=== PATIENT | female | born 1965 | race Two or more races ===

== ENCOUNTER 2023-07-24 19:58 | Emergency (ER) | payer MEDICARE, MEDICAID ==
[~2023-07-24] VITALS: Ht 162.6 cm; Wt 90.9 kg
[~2023-07-24 19:58] MED LIST: ARIP30TA7 PO; CHLO25AM IM; DIVA-76 PO; LORA2VIA30 IM; RISP1TAB13 PO; TRIH2TAB3 PO
[2023-07-24 21:11] LABS: BASOPHILS % (AUTO) 0.5 % (0-1); EOSINOPHILS # (AUTO) 0.2 X10'3 (0-0.9); EOSINOPHILS % (AUTO) 1.7 % (0-6); HEMATOCRIT 36.1 % (35.0-45.0); HEMOGLOBIN 11.8 g/dl (12.0-16.0); LYMPHOCYTES # (AUTO) 2.8 X10'3 (1.1-4.8); LYMPHOCYTES % (AUTO) 28.8 % (21-51); MEAN CORPUSCULAR HEMOGLOBIN 27.9 PG (27.0-31.0); MEAN CORPUSCULAR HGB CONC 32.7 g/dL (33.0-36.5); MEAN CORPUSCULAR VOLUME 85.3 FL (78-98); MEAN PLATELET VOLUME 8.6 FL (7.4-10.4); MONOCYTES # (AUTO) 0.7 X10'3 (0-0.9); MONOCYTES % (AUTO) 7.4 % (2-12); NEUTROPHILS % (AUTO) 61.6 % (42-75); PLATELET COUNT 294 X10'3 (140-440); RED BLOOD COUNT 4.23 X10'6 (4.20-5.60); WHITE BLOOD COUNT 9.8 X10'3 (4.5-11.0)
[2023-07-24] MEDS: LORazepam 2 mg/ml vial IM ONE (21:26)
[2023-07-24] MEDS: ziprasidone IM 20mg inj **IM only IM ONE (21:26)
[2023-07-24] MEDS: diazepam inj 5 MG/ML inj. IV ONE (21:27)
[2023-07-24 21:41] LABS: ALBUMIN 3.3 G/DL (3.4-5.0); ANION GAP 8 (8-16); BLOOD UREA NITROGEN 21 MG/DL (7-18); BUN/CREATININE RATIO 33.9 (10.0-20.0); CALCIUM 8.6 MG/DL (8.5-10.1); CHLORIDE 105 MMOL/L (99-107); CREATININE 0.62 MG/DL (0.40-0.90); GLUCOSE 102 MG/DL (70-104); POTASSIUM 3.5 MMOL/L (3.5-5.1); SODIUM 140 MMOL/L (135-145); THYROID STIMULATING HORMONE 2.51 ulU/ml (0.34-4.50); eCRCL 87 ML/MIN; eGFR > 90 ML/MIN
[2023-07-24 21:44] LABS: ETHANOL < 10 MG/DL (<10)
[2023-07-24 23:48] LABS: URINE HCG NEGATIVE (NEG)
[2023-07-25] LABS: BILIRUBIN,URINE NEGATIVE (Neg); CLARITY,URINE CLOUDY (Clear); COLOR,URINE YELLOW (Yellow); GLUCOSE, URINE NEGATIVE (Neg); KETONES,URINE NEGATIVE (Neg); LEUKOCYTE ESTERASE ,URINE MODERATE (Neg); NITRITES, URINE POSITIVE (Neg); OCCULT BLOOD,URINE TRACE-INTACT (Neg); PH,URINE 5.5 (4.8-8.0); PROTEIN,URINE NEGATIVE (Neg); UROBILINOGEN,URINE 0.2 E.U/dL (0.2-1.0)
[2023-07-25 00:22] LABS: UA COLLECTION TYPE STRAIGHT CATH
[2023-07-25 00:24] LABS: SQUAMOUS EPITHELIAL CELL,UR MANY /LPF (FEW)
[2023-07-25 00:25] LABS: WBC,URINE 50-100 /HPF (0-4)
[2023-07-25 00:26] LABS: BACTERIA,URINE 4+ /HPF (Neg); RBC,URINE 0-2 /HPF (0-2)
[2023-07-25 03:16] LABS: URINE AMPHETAMINE SCREEN POSITIVE (Neg); URINE BARBITUATE SCREEN NEGATIVE (Neg); URINE BENZODIAZEPINES SCREEN NEGATIVE (Neg); URINE CANNABINOID SCREEN POSITIVE (Neg); URINE COCAINE SCREEN NEGATIVE (Neg); URINE METHADONE SCREEN NEGATIVE (Neg); URINE OPIATE SCREEN NEGATIVE (Neg); URINE PHENCYCLIDINE SCREEN NEGATIVE (Neg)
[2023-07-25] MEDS: CefTRIAXone 1000mg IM Kit (w/lidocaine diluent) IM ONE (03:32)
[2023-07-25] MEDS ORDERED: ZIPR20CA2 IM (07:11)
[2023-07-25] MEDS: diazepam inj 5 MG/ML inj. IM STA (08:11)
[2023-07-25] MEDS: ziprasidone IM 20mg inj **IM only IM ONE (08:11)
[2023-07-25] MEDS: DOXYCYCLINE 100MG CAPSULE PO ONE (08:15)
[2023-07-25] MEDS: DOXYCYCLINE 100MG CAPSULE PO SCH (19:37)
[2023-07-26] MEDS: ziprasidone IM 20mg inj **IM only IM PRN (19:17)
[2023-07-28] MEDS: ziprasidone IM 20mg inj **IM only IM ONE (09:35)
[2023-07-28] MEDS: diphenhydrAMINE 50 mg/ml inj IM ONE ×2 (09:40→09:47)
[2023-07-28] MEDS: haloperidol lactate 5mg/ml inj IM ONE (09:47)
[2023-07-28] MEDS: divalproex sod 250mg ER (24-hour) tablet PO SCH (20:14)
[2023-07-28] MEDS: risperiDONE 0.5mg tablet PO SCH (20:14)
[2023-07-28] MEDS: trihexyphenidyl HCL 5 MG tablet PO SCH (20:14)
[2023-07-29] MEDS: ARIPIPRAZOLE 10 MG TABLET PO SCH (09:02)
[2023-07-29] MEDS: ziprasidone IM 20mg inj **IM only IM ONE (09:15)
[2023-07-29] MEDS: LORazepam 1 MG tablet PO PRN (19:57)
[2023-07-29] MEDS ORDERED: divalproex sodium 500mg tablet.DR PO SCH (20:11)
[2023-07-29] MEDS: divalproex sodium 500mg tablet.DR PO ONE (20:17)
[2023-07-30] MEDS: divalproex sodium 500mg tablet.DR PO SCH (21:08)
[2023-08-05] MEDS: acetaminophen 325mg tablet PO PRN (09:17)
[2023-08-07] MEDS: risperiDONE 0.5mg tablet PO SCH (21:44)
[2023-08-07] MEDS: trihexyphenidyl HCL 5 MG tablet PO SCH (21:46)
[2023-08-08 11:38] LABS: BASOPHILS # (AUTO) 0.1 X10'3 (0-0.2); BASOPHILS % (AUTO) 0.8 % (0-1); EOSINOPHILS # (AUTO) 0.2 X10'3 (0-0.9); EOSINOPHILS % (AUTO) 3.3 % (0-6); HEMATOCRIT 36.8 % (35.0-45.0); HEMOGLOBIN 12.2 g/dl (12.0-16.0); LYMPHOCYTES # (AUTO) 2.7 X10'3 (1.1-4.8); LYMPHOCYTES % (AUTO) 41.3 % (21-51); MEAN CORPUSCULAR HEMOGLOBIN 28.6 PG (27.0-31.0); MEAN CORPUSCULAR HGB CONC 33.1 g/dL (33.0-36.5); MEAN CORPUSCULAR VOLUME 86.2 FL (78-98); MEAN PLATELET VOLUME 8.6 FL (7.4-10.4); MONOCYTES # (AUTO) 0.4 X10'3 (0-0.9); MONOCYTES % (AUTO) 6.7 % (2-12); NEUTROPHILS # (AUTO) 3.1 X10'3 (1.8-7.7); NEUTROPHILS % (AUTO) 47.9 % (42-75); PLATELET COUNT 233 X10'3 (140-440); RED BLOOD COUNT 4.26 X10'6 (4.20-5.60); RED CELL DISTRIBUTION WIDTH 14.1 % (11.5-14.5); WHITE BLOOD COUNT 6.5 X10'3 (4.5-11.0)
[2023-08-08 11:46] LABS: ALBUMIN 3.2 G/DL (3.4-5.0); ANION GAP 4 (8-16); BLOOD UREA NITROGEN 20 MG/DL (7-18); CALCIUM 8.6 MG/DL (8.5-10.1); CHLORIDE 107 MMOL/L (99-107); GLUCOSE 124 MG/DL (70-104); POTASSIUM 4.1 MMOL/L (3.5-5.1); SODIUM 142 MMOL/L (135-145); TOTAL CARBON DIOXIDE 30.7 MMOL/L (24-32); eCRCL 68 ML/MIN; eGFR 74 ML/MIN
[2023-08-08 12:17] LABS: BILIRUBIN,URINE NEGATIVE (Neg); CLARITY,URINE CLOUDY (Clear); COLOR,URINE YELLOW (Yellow); GLUCOSE, URINE NEGATIVE (Neg); KETONES,URINE NEGATIVE (Neg); LEUKOCYTE ESTERASE ,URINE LARGE (Neg); NITRITES, URINE NEGATIVE (Neg); OCCULT BLOOD,URINE TRACE-INTACT (Neg); PROTEIN,URINE NEGATIVE (Neg); UROBILINOGEN,URINE 0.2 E.U/dL (0.2-1.0)
[2023-08-08 12:18] LABS: UA COLLECTION TYPE CLN CATCH MIDSTREAM
[2023-08-08 12:34] LABS: SQUAMOUS EPITHELIAL CELL,UR MANY /LPF (FEW); TRANSITIONAL EPI CELLS,URINE MANY /HPF
[2023-08-08 12:35] LABS: BACTERIA,URINE 2+ /HPF (Neg); RBC,URINE 0-2 /HPF (0-2); WBC,URINE 30-50 /HPF (0-4)
[2023-08-08 16:05] VITALS: BP 113/76; PULSE 78; RESP 16; TEMP 98.2; O2SAT 99
== END 2023-08-08 16:05 | disposition still patient (30) ==
LOC: ER 19:59
DX: Z73.9 Problem related to life management difficulty, unspecified (principal); Z20.822 Contact with and (suspected) exposure to COVID-19; Z88.8 Allergy status to other drugs, medicaments and biological substances; Z79.899 Other long term (current) drug therapy
CPT/HCPCS: 36415; 80048; 80305; 80320; 81001; 81025; 84443; 85025; 87502; 87503; 87811; 96372; 96374; 99285; J0696; J3360; J3486; 81003; A4353; J2060

== ENCOUNTER 2024-09-15 12:29 | Emergency (ER) | payer MEDICARE, MEDICAID ==
[~2024-09-15 12:29] MED LIST changes: -ARIP30TA7 PO; -CHLO25AM IM; -DIVA-76 PO; -RISP1TAB13 PO; -TRIH2TAB3 PO; +ZIPR20CA2 IM
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
== END 2024-09-15 16:12 ==
LOC: ER 12:29
DX: Z73.6 Limitation of activities due to disability (principal); Z00.8 Encounter for other general examination; R51.9 Headache, unspecified
CPT/HCPCS: 99285